=== PATIENT | male | born 1950 | race Caucasian/White ===

== ENCOUNTER 2024-12-04 08:15 | Emergency (ER) | payer MEDICARE, BC ==
[2024-12-04 08:38] LABS: BASOPHILS ABSOLUTE AUTO 0.02 10^3/uL (0.00-0.10); BASOPHILS PERCENT AUTO 0.2 % (0.0-1.0); EOSINOPHILS ABSOLUTE AUTO 0.05 10^3/uL (0.10-0.30); EOSINOPHILS PERCENT AUTO 0.6 % (1.0-3.0); IMMATURE GRAN ABSOLUTE AUTO 0.01 10^3/uL (0.00-0.04); IMMATURE GRAN PERCENT AUTO 0.1 % (0.0-0.4); LYMPHOCYTES ABSOLUTE AUTO 1.48 10^3/uL (1.00-4.00); LYMPHOCYTES PERCENT AUTO 18.2 % (20.0-40.0); MEAN PLATELET VOLUME 10.8 fL (7.4-10.4); MONOCYTES ABSOLUTE AUTO 0.89 10^3/uL (0.10-0.80); MONOCYTES PERCENT AUTO 11.0 % (2.0-8.0); NEUTROPHILS ABSOLUTE AUTO 5.67 10^3/uL (2.50-7.00); NEUTROPHILS PERCENT AUTO 69.9 % (50.0-70.0); PLATELET COUNT,PLT 166 10^3/uL (150-400); RED BLOOD CELL COUNT 4.59 10^6/uL (4.50-6.00); RED CELL DISTRIBUTION WIDTH 14.0 % (11.5-14.5); WHITE BLOOD CELL COUNT,WBC 8.12 10^3/uL (5.00-10.00)
[2024-12-04 08:54] LABS: BLOOD UREA NITROGEN,BUN 13.0 mg/dL (7-18); CARBON DIOXIDE,CO2 23.0 mmol/L (21.0-32.0); CHLORIDE,CL 101.0 mmol/L (98-107); CREATININE 0.88 mg/dL (0.51-1.17); EST CRCL DRUG DOSING (CG) 64.06 mL/min; GLUCOSE RANDOM 94.0 mg/dL (70-140); POTASSIUM,K 3.8 mmol/L (3.5-5.1); SODIUM,NA 137.0 mmol/L (136-145)
[2024-12-04 08:55] LABS: ESTIMATED GFR 90.0 mL/min (>=60)
[2024-12-04 09:05] LABS: INR 2.2 (0.9-1.1)
== END 2024-12-04 10:08 | disposition home or self-care (01) ==
LOC: KA.ED 08:17
DX: M17.11 Unilateral primary osteoarthritis, right knee (principal); M79.89 Other specified soft tissue disorders; M25.531 Pain in right wrist; I48.91 Unspecified atrial fibrillation; I11.0 Hypertensive heart disease with heart failure; I50.9 Heart failure, unspecified; E78.00 Pure hypercholesterolemia, unspecified; Z95.2 Presence of prosthetic heart valve; Z79.01 Long term (current) use of anticoagulants; Z79.899 Other long term (current) drug therapy
CPT/HCPCS: 36415; 70450; 73100-RT; 73560-RT; 73565; 80048; 82947; 84550; 85025; 85610; 85652; 86140; 99285